=== PATIENT | female | born 2000 | race Caucasian/White ===

== ENCOUNTER 2024-02-05 04:57 | Emergency (ER) | payer SELFPAY ==
[2024-02-05 05:36] LABS: BILIRUBIN Negative (Negative); BLOOD Negative (Negative); CLARITY Clear (Clear); COLOR Yellow (Yellow); GLUCOSE Negative (Negative); KETONE Negative (Negative); LEUKO ESTERASE Negative (Negative); NITRITE Negative (Negative); SPECIFIC GRAVITY <= 1.005 (1.001-1.030); UROBILINOGEN 0.2 E.U./dl (0.0-1.0)
[2024-02-05 05:43] LABS: URINE AMPHETAMINES Negative (1000ng/ml); URINE BARBITURATES Negative (200ng/ml); URINE BENZODIAZEPINES Negative (200ng/ml); URINE CANNABINOIDS (THC) Negative (50ng/ml); URINE COCAINE Negative (300ng/ml); URINE METHADONE Negative (300ng/ml); URINE OPIATES Negative (300ng/ml); URINE PHENCYCLIDINE Negative (25ng/ml)
[2024-02-05 05:48] LABS: RBC 0-2 rbc/hpf (0-2); WBC 0-2 wbc/hpf (0-5)
[2024-02-05 05:54] LABS: ALKALINE PHOSPHATASE 83 U/L (46-116); BUN 5 mg/dl (9-23); CHLORIDE 108 mmol/L (98-107); ETHYL ALCOHOL 185.4 mg/dl (<3); POTASSIUM 3.9 mmol/L (3.4-5.1); SGPT/ALT 54 U/L (5-49); TOTAL PROTEIN 8.2 gm/dL (6.0-8.0)
[2024-02-05 06:02] LABS: BASO # 0.1 10*3/uL (0.0-0.1); BASO % 0.8 % (0.0-1.0); EOS # 0.1 10*3/uL (0.0-0.4); EOS % 0.7 % (1.0-4.0); HEMATOCRIT 39.1 % (37.0-47.0); LYMPH # 3.7 10*3/uL (1.3-4.4); LYMPH % 40.6 % (27.0-41.0); MEAN CELL VOLUME 87.3 fl (81.0-99.0); MEAN CORPUSCULAR HGB CONC 33.2 g/dl (33.0-37.0); MEAN PLATELET VOLUME 9.1 fl (9.6-12.3); MONO # 0.6 10*3/uL (0.1-1.0); NEUT # 4.6 10*3/uL (2.3-7.9); NEUT % 50.5 % (47.0-73.0); PLATELET COUNT AUTOMATED 442 10*3/uL (130-400); RED BLOOD COUNT 4.48 10*6/uL (4.10-5.10); RED CELL DISTRI WIDTH 13.3 % (0-14.5); WHITE BLOOD COUNT 9.1 10*3/uL (4.8-10.8)
[2024-02-05] MEDS ORDERED: MINIPRESS5 M1 PO (06:06)
[2024-02-05] MEDS ORDERED: MELATONIN10 M4 PO (06:06)
[2024-02-05] MEDS ORDERED: NALTREXONE50 MG PO (06:06)
[2024-02-05] MEDS ORDERED: ATARAX,VISTARIL50 MG PO (06:07)
[2024-02-05] MEDS ORDERED: QUETIAPINE FUMA50 M1 PO (06:07)
[2024-02-05] MEDS ORDERED: OXCARBAZEPINE300 M1 PO (06:07)
[2024-02-05] MEDS ORDERED: OXCARBAZEPINE150 MG PO (06:07)
[2024-02-05] MEDS ORDERED: QUETIAPINE FUM200 M3 PO (06:08)
[2024-02-05] MEDS ORDERED: ACETAMINOPHEN 325 MG TAB PO ONE (06:55)
[2024-02-05] MEDS ORDERED: Ondansetron Hydrochloride 4 MG TAB SL ONE (12:05)
== END 2024-02-05 13:19 | disposition home or self-care (01) ==
LOC: ED 04:57
PROVIDERS: Emergency Medicine
DX: F43.20 Adjustment disorder, unspecified (principal); E11.9 Type 2 diabetes mellitus without complications; F10.129 Alcohol abuse with intoxication, unspecified; Z91.018 Allergy to other foods; Y90.2 Blood alcohol level of 40-59 mg/100 ml